=== PATIENT | male | born 1945 | race Caucasian/White ===

== ENCOUNTER 2019-07-27 12:56 | Observation (INO) | payer MEDICARE ==
--- NOTE | 2019-07-27 13:53 | ED ---
HPI Chest Pain - HPI Summary HPI Summary: The patient is a 74 y/o M presenting to [facility] with a chief complaint of sudden onset chest discomfort yesterday with intermittent episodes lasting into today. He reports that he has been exerting himself more lately as he has been exercising a lot. Yesterday, he experienced a twinge in his chest, which reminded him of when he had to have a cardiac stent placed secondary to ACS. He states his chest is currently diffusely sore with rating of 3/10 in severity. He denies any shortness of breath, cough, dizziness, diaphoresis, nausea, or abdominal pain. He took 2-3 ASA since last night to some relief. He did not take NTG although he has it at home. PMHx: HTN, acute coronary syndrome, angioplasty, cardiac stents. FHx: cardiac disease, HTN. Nonsmoker, occasional EtOH, no substance use. Medications reviewed. Allergies noted. - History of Current Complaint Chief Complaint: EDChestPainROMI Time Seen by Provider: 07/27/19 13:36 Hx Obtained From: Patient Onset/Duration: Started Hours Ago - yesterday, Still Present Timing: Intermittent, Lasting Minutes Initial Severity: Moderate Current Severity: Mild Pain Intensity: 3 Pain Scale Used: 0-10 Numeric Chest Pain Location: Diffuse Chest Pain Radiates: No Character: Other: - "twinge", soreness Aggravating Factor(s): Exertion Alleviating Factor(s): Rest Associated Signs and Symptoms: Negative: Dizziness, Shortness of Breath, Diaphoresis, Nausea, Cough, Abdominal Pain - Allergy/Home Medications Allergies/Adverse Reactions: Allergies Allergy/AdvReac Type Severity Reaction Status Date / Time No Known Allergies Allergy Verified 08/24/13 09:18 Home Medications: Home Medications Aspirin EC TAB* [Ecotrin EC Low Dose 81 MG*] 81 mg PO DAILY 07/27/19 [History Confirmed 07/27/19] Atorvastatin* [Lipitor 40 MG*] 40 mg PO QPM 07/27/19 [History Confirmed 07/27/19 ] Cholecalciferol (Vitamin D3) [Vitamin D3] 1,000 unit PO DAILY 07/27/19 [History Confirmed 07/27/19] LORazepam TAB(*) [Ativan 0.5 MG TAB (*)] 0.5 - 1.5 mg PO TID PRN 07/27/19 [ History Confirmed 07/27/19] Magnesium 50 mg PO DAILY 07/27/19 [History Confirmed 07/27/19] Metoprolol Succinate XL TAB* [Toprol XL TAB*] 25 mg PO DAILY 07/27/19 [History Confirmed 07/27/19] Multivitamins/Minerals TAB* [Theragran/minerals TAB*] 1 tab PO DAILY 07/27/19 [ History Confirmed 07/27/19] Nitroglycerin TAB 0.4 MG* 0.4 mg SL Q5M PRN 07/27/19 [History Confirmed 07/27/19 ] [place]-3 Fatty Acids (Nf) [Fish Oil (NF)] 2,000 mg PO DAILY 07/27/19 [History Confirmed 07/27/19] [place] Mushroom Extract 1 cap PO DAILY 07/27/19 [History Confirmed 07/27/19 ] amLODIPine TAB* [Norvasc 5 mg TAB*] 5 mg PO DAILY 07/27/19 [History Confirmed ] PMH/Surg Hx/FS Hx/Imm Hx Endocrine/Hematology History: Denies: Hx Anticoagulant Therapy, Hx Diabetes, Hx Thyroid Disease Cardiovascular History: Reports: Hx Hypertension Denies: Hx Hypercholesterolemia, Hx Peripheral Vascular Disease Respiratory History: Reports: Other Respiratory Problems/Disorders - PNEUMONIA X3 IN 5 MONTH PERIOD. Denies: Hx Asthma Musculoskeletal History: Denies: Hx Arthritis, Hx Rheumatoid Arthritis, Hx Osteoporosis Sensory History: Denies: Hx Cataracts, Hx Contacts or Glasses, Hx Glaucoma Opthamlomology History: Denies: Hx Cataracts, Hx Contacts or Glasses, Hx Glaucoma Neurological History: Denies: Hx Headaches, Hx Seizures, Hx Transient Ischemic Attacks (TIA) Psychiatric History: Reports: Hx Depression - prozac in past. no longer treating - Surgical History Surgical History: Yes Surgery Procedure, Year, and Place: tonsillectomy @1950, double hernia 1954 or 56, vasectomy 1989, angioplasty and stent, February 2013 Hx Anesthesia Reactions: No Infectious Disease History: No Infectious Disease History: Denies: Traveled Outside the [place] in Last 30 Days - Family History Known Family History: Positive: Cardiac Disease, Hypertension - Social History Alcohol Use: Occasionally Hx Substance Use: No Substance Use Type: Reports: None Hx Tobacco Use: No Smoking Status (MU): Never Smoked Tobacco Review of Systems Negative: Skin Diaphoresis Positive: Chest Pain - "twinge" Negative: Shortness Of Breath, Cough Negative: Abdominal Pain, Nausea Neurological: Other - Negative: dizziness All Other Systems Reviewed And Are Negative: Yes Physical Exam - Summary Physical Exam Summary: VITAL SIGNS: Reviewed. GENERAL: Patient is a well-developed and nourished male who is lying comfortable in the stretcher. Patient is not in any acute respiratory distress. HEAD AND FACE: No signs of trauma. No ecchymosis, hematomas or skull depressions. No sinus tenderness. EYES: PERRLA, EOMI x 2, No injected conjunctiva, no nystagmus. EARS: Hearing grossly intact. Ear canals and tympanic membranes are within normal limits. MOUTH: Oropharynx within normal limits. NECK: Supple, trachea is midline, no adenopathy, no JVD, no carotid bruit, no c- spine tenderness, neck with full ROM. CHEST: Symmetric, no tenderness at palpation. LUNGS: Clear to auscultation bilaterally. No wheezing or crackles. CVS: Regular rate and rhythm, S1 and S2 present, no murmurs or gallops appreciated. ABDOMEN: Soft, non-tender. No signs of distention. No rebound, no guarding, and no masses palpated. Bowel sounds are normal. EXTREMITIES: FROM in all major joints, no edema, no cyanosis or clubbing. NEURO: Alert and oriented x 3. No acute neurological deficits. Speech is normal and follows commands. SKIN: Dry and warm. Triage Information Reviewed: Yes Vital Signs On Initial Exam: Initial Vitals Temp Pulse Resp BP Pulse Ox 98.2 F 90 18 142/89 97 07/27/19 13:00 07/27/19 13:00 07/27/19 13:00 07/27/19 13:00 07/27/19 13:00 Vital Signs Reviewed: Yes Procedures - Sedation Patient Received Moderate/Deep Sedation with Procedure: No Diagnostics - Vital Signs Vital Signs Temp Pulse Resp BP Pulse Ox 07/27/19 13:40 97 07/27/19 13:00 98.2 F 90 18 142/89 97 - Laboratory Result Diagrams: 07/27/19 14:15 07/27/19 14:15 Lab Statement: Any lab studies that have been ordered have been reviewed, and results considered in the medical decision making process. - Radiology Chest X-Ray Radiology Interpretation Completed By: Radiologist Summary of Radiographic Findings: Impression: No active cardiopulmonary disease is noted. ED physician has reviewed this report. - EKG 1258 Cardiac Rate: NL - 89 bpm EKG Rhythm: Sinus Rhythm Summary of EKG Findings: EKG at 1258 reveals NSR at [address] depressions in I , II, and V3-V6. ED physician has reviewed and interpreted this EKG. Re-Evaluation - Re-Evaluation First Eval Re-Evaluation Time: 16:00 Change: Unchanged Comment: We discussed results and plan for admission. Chest Pain Course/Dx - Course Assessment/Plan: Patient is a 74 y/o M who has history of acute coronary syndome with cardiac stent placement with current symptoms of intermittent episodes of chest discomfort described as a "twinge" and soreness onset yesterday with mild relief to ASA. Denies any shortness of breath, cough, dizziness, diaphoresis, nausea, or abdominal pain. No NTG taken yet. Blood work without a significant abnormality except for INR of 1.18, sodium of 133, CPK of 297, troponin of 0.06, and BNP of 334. Urinalysis is negative for UTI. EKG shows ST depression in leads 1 and 2 and also lead V3-V6. The patient took aspirin at home. Patient was given nitroglycerin in the ED, and his symptoms have significantly improved. Because of his comorbidities, I discussed my findings and test results with Dr. Pride who accepted the patient for admission. The patient is hemodynamically stable alert and oriented 3. - Diagnoses Provider Diagnoses: Chest pain, Elevated troponin - Provider Notifications Discussed Care Of Patient With: Radha Pride - hospitalist Time Discussed With Above Provider: 15:50 Instructed by Provider To: Admit As Observation - I discussed the patients case with Dr. Pride, and she accepts the patient for admission. Discharge ED - Sign-Out/Discharge Documenting (check all that apply): Patient Departure - Patient accepted for admission by Dr. Pride. - Discharge Plan Condition: Stable Disposition: ADMITTED TO [facility] - Billing Disposition and Condition Condition: STABLE Disposition: Admitted to [facility] - Attestation Statements Document Initiated by Scribe: Yes Documenting Scribe: Daniela Navarro Provider For Whom Scribe is Documenting (Include Credential): Dr. Andrae Harvey MD Scribe Attestation: IDaniela, scribed for Dr. Andrae Harvey MD on 07/28/19 at 1847. Scribe Documentation Reviewed: Yes Provider Attestation: The documentation as recorded by the scribe, Daniela Navarro accurately reflects the service I personally performed and the decisions made by me, Dr. Andrae Harvey MD Status of Scribe Document: Viewed
[2019-07-27 13:59] LABS: Urine Appearance Clear; Urine Bacteria Absent (Absent); Urine Bilirubin Negative (Negative); Urine Blood 1+ (Negative); Urine Color Yellow; Urine Glucose Negative (Negative); Urine Ketones Negative (Negative); Urine Nitrite Negative (Negative); Urine Protein Negative (Negative); Urine Red Blood Cell 2+(6-10/hpf) (Absent); Urine Specific Gravity 1.009 (1.010-1.030); Urine Urobilinogen Negative (Negative); Urine White Blood Cell Absent (Absent)
[2019-07-27] MEDS ORDERED: Nitroglycerin TAB 0.4 MG* 0.4 MG TAB SL ONE (14:19)
[2019-07-27] MEDS ORDERED: Nitroglycerin TAB 0.4 MG* 0.4 MG TAB ONE (14:21)
[2019-07-27 14:26] LABS: ABS Basophils 0.1 10^3/ul (0-0.2); ABS Lymphocytes 1.1 10^3/ul (1.0-4.8); ABS Monocytes 0.5 10^3/ul (0-0.8); ABS Neutrophils 5.3 10^3/ul (1.5-7.7); Eosinophil % 0.6 %; Hematocrit 42 % (42-52); Hemoglobin 14.5 g/dL (14.0-18.0); Lymphocyte % 15.8 %; Mean Corpuscular HGB Conc 35 g/dL (31-36); Mean Corpuscular Hemoglobin 30 pg (27-31); Mean Corpuscular Volume 85 fL (80-94); Mean Platelet Volume 6.4 fL (7.4-10.4); Platelet Count 208 10^3/uL (150-450); Red Blood Count 4.87 10^6 /uL (4.18-5.48); Red Cell Distribution Width 14 % (10-15)
[2019-07-27 14:35] LABS: INR 1.18 (0.82-1.09)
[2019-07-27 14:49] LABS: ALT 24 U/L (7-52); AST 25 U/L (13-39); Albumin 4.1 g/dL (3.2-5.2); Albumin/Globulin Ratio 1.5 (1-3); Alkaline Phosphatase 61 U/L (34-104); Anion Gap 7 mmol/L (2-11); BUN/Creatinine Ratio 13.2 (8-20); Blood Urea Nitrogen 12 mg/dL (6-24); CO2 Carbon Dioxide 25 mmol/L (22-32); Calcium 8.9 mg/dL (8.6-10.3); Chloride 101 mmol/L (101-111); Creatine Kinase 297 U/L (10-223); EGFR African American 98.8 (>60); EGFR Non-African American 81.7 (>60); Globulin 2.8 g/dL (2-4); Glucose 99 mg/dL (70-100); Potassium 3.7 mmol/L (3.5-5.0); Sodium 133 mmol/L (135-145); Total Protein 6.9 g/dL (6.4-8.9)
[2019-07-27 14:54] LABS: CKMB ng/mL 3.9 ng/mL (0.6-6.3)
[2019-07-27 14:55] LABS: Troponin I 0.06 ng/mL (<0.04)
[2019-07-27 15:04] LABS: TSH (Thyroid Stimulating Horm) 1.25 mcIU/mL (0.34-5.60)
[2019-07-27 17:29] LABS: Troponin I 0.06 ng/mL (<0.04)
[2019-07-27] MEDS ORDERED: LORazepam TAB(*) 1 MG PO PRN (17:51)
[2019-07-27] MEDS ORDERED: Nitroglycerin TAB 0.4 MG* 0.4 MG TAB SL PRN (17:51)
[2019-07-27] MEDS ORDERED: Acetaminophen TAB* 325 MG PO PRN (17:59)
[2019-07-27] MEDS ORDERED: Atorvastatin* 40 MG TAB PO SCH (18:00)
[2019-07-27 20:27] LABS: Troponin I 0.05 ng/mL (<0.04)
[2019-07-27] MEDS: Heparin VIAL(*) 5000 UNITS/ML VIAL (FIVE THOUSAND) SUBCUT SCH (21:23)
--- NOTE | 2019-07-27 21:29 | HP ---
CC: Dr. Jefry Costello; Dr. Valencia * HISTORY AND PHYSICAL: DATE OF ADMISSION: 07/27/19 TIME OF EVALUATION: 5:45 p.m. PRIMARY CARE PROVIDER: Dr. Jefry Costello. GAMMA OPERATOR: Dr. Valencia. CHIEF COMPLAINT: Chest pain. HISTORY OF PRESENT ILLNESS: Mr. White is a 74-year-old male with a past medical history of hypertension, coronary artery disease, status post MA and stents x2 who presented to the emergency room with episodes of left-sided chest pain "twinges" after hiking during the weekend. The patient states that he was in his usual state of health, but this year has been very stressful for him. His was diagnosed with glioblastoma multiforme and went into hospice earlier this year and in November. He states that he stopped exercising. He could not be as careful with his diet and has been going through a lot of anxiety. He states that over the weekend, he went to hike and climbed a trail with his family. He states that the last mile was very taxing, but he was able to do it with mild dyspnea and no chest pain. He states that he returned home and he started to experience some episodes of left-sided chest "twinges" that he describes as mild chest pain. The episodes were not related to exertion, but as they persisted today, he decided to come to the emergency room for further evaluation. He states that this chest pain feels very different from what he experienced in 2012 when he had his MA. He denies nausea, vomiting, shortness of breath, diaphoresis, or urinary or bowel complaints. PAST MEDICAL HISTORY: 1. Hypertension. 2. Coronary artery disease. The patient presented with [id number] MA in February 2013. He was found to have an occluded circumflex, status post PCI and stent placement, and to have 80% stenosis of the distal LAD. Plan at that time was for medical management of his LAD. The patient states in 2014 he had another stent placed, and as per Dr. Valencia's note, he had a thrombus in the LAD and another stent was placed and the stent in the circumflex was normal. This was done at [facility] in [place]. MEDICATION LIST: 1. Amlodipine 5 mg p.o. daily. 2. Aspirin 81 mg p.o. daily. 3. Atorvastatin 40 mg p.o. at bedtime. 4. Cholecalciferol 1000 units p.o. daily. 5. Lorazepam 0.5 to 1.5 mg p.o. t.i.d. as needed for anxiety. The patient states he has been taking this medication daily at least 1 to 2 times a day. 6. Magnesium 50 mg p.o. daily. 7. Metoprolol succinate 25 mg p.o. daily. 8. Multivitamin 1 tablet p.o. daily. 9. Nitroglycerin 0.4 mg sublingual q.5 minutes p.r.n. for chest pain. 10. Fish oil 2000 mg p.o. daily. ALLERGIES: No known drug allergies. FAMILY HISTORY: Reviewed and noncontributory. SOCIAL HISTORY: There is no history of alcohol or drug use. The patient has a remote history of smoking for 10 years, but he quit in 1977. As described in the HPI, he underwent a very stressful situation this year with the passing of his . Surrogate decision maker is his daughter, Debbie White, phone number is [phone]. REVIEW OF SYSTEMS: A 14-point review of systems was performed, and all the pertinent negative and positive findings are in the HPI. PHYSICAL EXAMINATION GENERAL: The patient is a pleasant elderly gentleman, sitting up on the ED stretcher, in no acute distress. VITAL SIGNS: Temperature 98.2, heart rate is 71, respiratory rate is 14, oxygen saturation is 96% on room air, blood pressure is 145/85. CHEST: Breath sounds bilaterally with no added sounds. CVS: Normal S1, S2. Regular rate and rhythm. ABDOMEN: Soft, nontender, and nondistended. Bowel sounds are present. EXTREMITIES: No edema. No calf tenderness. NEURO: He is alert and oriented x3. Able to move all 4 extremities. LABORATORY AND IMAGING DATA: The patient had a CBC that showed WBC of 7, hemoglobin 14.5, hematocrit 42, platelets of 208 with 75% neutrophils. INR is 1.1. Chemistry showed a sodium of 133, potassium of 3.7, chloride of 101, bicarb of 25, BUN of 12, creatinine was 0.91, glucose of 99, calcium 8.9, magnesium is 2. LFTs are normal, CPK 297. CK-MB is 3.9, troponin is 0.06 x2, BNP 334. TSH is 1.25. Urinalysis showed 1+ blood and 2+ rbc's. EKG done on 08/06/19 at 12:58 p.m. shows sinus rhythm at 89 beats per minute with no acute ischemic changes. On his prior EKG in 2012, he had ST changes in aVL, III, and aVF. They are not present at this time. 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 ASSESSMENT AND PLAN: Mr. White is a 74-year-old male with a past medical history of hypertension, coronary artery disease; status post stents to the circumflex in 2012 and to the LAD in 2014 who presented to the emergency room with complaints of chest pain. 1. Chest pain. Rule out acute coronary syndrome. It is interesting that the patient did not have chest pain during the exertion of hiking, but developed chest pain later. His EKG does not show acute ischemic changes and he has only minimal troponin elevation of 0.06. At the time of the interview, the patient is chest pain free. He will be admitted to observation to the telemetry floor. We are going to check serial troponins, and if acute coronary syndrome is ruled out, he will undergo exercise stress test in the morning. We will continue his aspirin and atorvastatin, and we will hold his metoprolol in preparation for stress test in the morning. 2. Hypertension. It is controlled, though we will continue his amlodipine. 3. DVT prophylaxis. The patient has a score of 2 on the DVT Prophylaxis Assessment Guide and he will be started on subcutaneous heparin. 4. Code status is full. TIME SPENT: Approximately 50 minutes were spent with the patient interview, medical records review, physical examination to complete this admission. More than half of this time was spent [id number] with the patient and in coordination of care. [id number]/[facility] #: [id number] JELLY
[2019-07-28] MEDS: Heparin VIAL(*) 5000 UNITS/ML VIAL (FIVE THOUSAND) SUBCUT SCH (05:11)
--- NOTE | 2019-07-28 07:41 | PN ---
Subjective Date of Service: 07/28/19 Interval History: HD2 on 07/28 74 M PMH CAD s/p PCI in 2012,2014 c/b thrombus and repeat plasty in 2014, HTN, HLD, anxiety who presented with exertional chest pain after a hike Overnight no acute events, VSS, some anxiety, constant c/o 1/10 pain in L chest Labs: Trop trended down 0.05 yesterday afternoon This morning: Awaiting exercise stress test, discussed if normal may be able to be discharged, but if high risk to stay. He is pleasant and well, still some c/ o occasional L sided chest pain and some sensation of SOB when laying flat Objective Active Medications: Acetaminophen (Tylenol Tab*) 650 mg PO Q6H PRN PRN Reason: MILD PAIN or TEMP > 100.4 Last Admin: 07/27/19 21:43 Dose: 650 mg Amlodipine Besylate (Norvasc Tab*) 5 mg PO DAILY [facility] Aspirin (Aspirin Ec Tab*) 81 mg PO DAILY [facility] Atorvastatin Calcium (Lipitor*) 40 mg PO QPM [facility] Last Admin: 07/27/19 18:28 Dose: 40 mg Cholecalciferol (Vitamin D Tab*) 1,000 units PO DAILY [facility] Heparin Sodium (Porcine) (Heparin Vial(*)) 5,000 units SUBCUT Q8HR [facility] Last Admin: 07/28/19 05:11 Dose: 5,000 units Lorazepam (Ativan Tab(*)) 1 mg PO TID PRN PRN Reason: ANXIETY Multivitamins/Minerals (Theragran/Minerals Tab*) 1 tab PO DAILY [facility] Nitroglycerin (Nitroglycerin Tab 0.4 Mg*) 0.4 mg SL Q5M PRN PRN Reason: ANGINA Vital Signs - 8 hr 07/28/19 03:15 Temperature 98.2 F Pulse Rate 64 Respiratory 18 Rate Blood Pressure 131/74 (mmHg) O2 Sat by Pulse 97 Oximetry Oxygen Devices in Use Now: None Appearance: Pleasant man in NAD Eyes: No Scleral Icterus Ears/Nose/Mouth/Throat: NL Teeth, Lips, Gums Neck: NL Appearance and Movements; NL JVP, Trachea Midline Respiratory: Symmetrical Chest Expansion and Respiratory Effort, Clear to Auscultation Cardiovascular: NL Sounds; No Murmurs; No JVD, RRR Abdominal: NL Sounds; No Tenderness; No Distention, No Hepatosplenomegaly Lymphatic: No Cervical Adenopathy, No Axillary Adenopathy Extremities: No Edema Skin: No Rash or Ulcers Neurological: Alert and Oriented x 3 Result Diagrams: 07/27/19 14:15 07/27/19 14:15 Assess/Plan/Problems-Billing Assessment: 74 M PMH CAD s/p PCI in 2012,2014 c/b thrombus and repeat plasty in 2014, HTN, HLD, anxiety who presented with exertional chest pain after a hike with mild troponin elevatio, + high risk stress test. - Patient Problems (1) Chest pain Current Visit: Yes Status: Acute Code(s): R07.9 - CHEST PAIN, UNSPECIFIED SNOMED Code(s): 16601310 Comment: - Exertional chest pain w/ SOB and mild trop elevation with no acute EKG changes - DDx demand or Type 2, ACS, deconditioning or other non cardiac cause of CP - Able to complete exercise stress test which was noted as high risk but on discussion with Dr Bertrand unchanged from 2015 - Will consult to cardiology - Reduced EF on NM, will repeat echo (2) CAD (coronary artery disease) Current Visit: Yes Status: Acute Code(s): I25.10 - ATHSCL HEART DISEASE OF [place] CORONARY ARTERY W/O ANG PCTRS SNOMED Code(s): 63844782 Comment: - PCI in 2012, repeat in 2014 - 2/2 prevention asa, statin, currently not on BB (3) HTN (hypertension) Current Visit: Yes Status: Acute Code(s): I10 - ESSENTIAL (PRIMARY) HYPERTENSION SNOMED Code(s): 57192718 Comment: - Controlled on home amlodipine (4) HLD (hyperlipidemia) Current Visit: Yes Status: Acute Code(s): E78.5 - HYPERLIPIDEMIA, UNSPECIFIED SNOMED Code(s): 10413007 Comment: - Atorva 40 (5) Anxiety Current Visit: Yes Status: Acute Code(s): F41.9 - ANXIETY DISORDER, UNSPECIFIED SNOMED Code(s): 76637383 Comment: - Home lorazepam, appreciate difficult extenuating circumstances in patients life (recently lost his and also pet dog) (6) DVT prophylaxis Current Visit: Yes Status: Acute Code(s): Z29.9 - ENCOUNTER FOR PROPHYLACTIC MEASURES, UNSPECIFIED SNOMED Code(s): 910438804 Comment: - [facility] (7) Full code status Current Visit: Yes Status: Acute Code(s): Z78.9 - OTHER SPECIFIED HEALTH STATUS SNOMED Code(s): 183569090 Status and Disposition: Inpatient
[2019-07-28] MEDS ORDERED: Multivitamins/Minerals TAB PO SCH (09:00)
[2019-07-28] MEDS ORDERED: Cholecalciferol TAB* 1000 UNITS PO SCH (09:00)
[2019-07-28] MEDS ORDERED: amLODIPine TAB* 5 MG PO SCH (09:00)
[2019-07-28] MEDS ORDERED: Aspirin EC TAB* 81 MG TAB.EC PO SCH (09:00)
[2019-07-28 12:30] VITALS: BP 139/79
--- NOTE | 2019-07-28 19:50 | CONS ---
CARDIOLOGY CONSULTATION: DATE OF CONSULT: 07/28/19 INDICATION FOR CONSULTATION: Chest pain, history of coronary artery disease. HISTORY OF PRESENT ILLNESS: The patient is a 74-year-old gentleman with a history of coronary artery disease, history of stenting to his left circumflex artery in 2012, history of a known 80% stenosis to his LAD, under medical management. The patient came to the hospital because he was having twinges of chest pain. The patient states that recently he has been under a stress. His is diagnosed with brain tumor and is in hospice. The patient used to be exercising regularly, but stopped for care of his . He has been careful with his diet, but has had a lot of anxiety. The patient states that this past weekend he was going for a hike with his family to relieve some of the stress, he did claim to have some mild dyspnea, but no actual chest pain. When he got home, he started having twinges on the left side of his chest and decided to come to the emergency room. In the emergency room, his EKG showed no obvious ST -segment depressions or elevations. The patient's troponin was minimally elevated at 0.06 and remained flat for 3 doses. The patient underwent a chemical nuclear stress test, which I reviewed personally. He does have an area of infarct to his lateral wall. He does have a moderately reduced LV systolic function, ejection fraction of 30% to 35%. His stress test was exactly the same as the stress test back in 2016. PAST MEDICAL HISTORY: Significant for coronary artery disease, hypertension. OUTPATIENT MEDICATIONS: 1. Amlodipine 5 mg a day. 2. Aspirin 81 mg a day. 3. Atorvastatin 40 mg a day. 4. Calciferol 1000 units a day. 5. Lorazepam as needed. 6. Magnesium 50 mg a day. 7. Metoprolol succinate 25 mg a day. 8. Multivitamin a day. 9. Fish oil tablets. ALLERGIES: No known drug allergies. FAMILY HISTORY: Noncontributory. No evidence of early coronary artery disease or cardiac arrhythmias. SOCIAL HISTORY: He is retired. He is . He quit smoking in 1996. Rare alcohol intake. He was getting regular exercise until his took ill. REVIEW OF SYSTEMS: Negative for fevers and chills. Negative for changes in bowel or bladder habits. Negative for change in weight. Other 12-point review is unremarkable. PHYSICAL EXAM: Height is 5 feet 8 inches, weight is 175 pounds, temperature 97.6, heart rate is 72, blood pressure 139/79, respiratory rate is 16, oxygen saturation 98%. Sclerae anicteric. Oropharynx is pink without erythema. Carotids are 2+ without bruits. JVD is normal. Thyroid is normal. Cardiac Exam: S1, S2 without any murmurs, rubs, or gallops. Lungs are clear to auscultation. Extremities show no edema. He has 2+ pulses throughout. The patient is awake, alert, and oriented. He moves all 4 extremities equally. Abdomen is soft, nontender, nondistended with normoactive bowel sounds. DIAGNOSTIC STUDIES/LAB DATA: Chemistries are within normal limits. AST and ALT are normal. Troponins are as described above. TSH is normal. BNP is minimally elevated at 334. CBC within normal limits. INR is normal. IMPRESSION AND PLAN: This is a 74-year-old gentleman with a history of coronary artery disease. He was admitted to the hospital with atypical chest pain. The patient's troponin levels are minimally elevated, but stagnant. No evidence of increase and then decrease of his troponin levels. His EKG shows no ischemic EKG changes. His stress test shows a larger infarct to his lateral wall, which is consistent with his stress test in 2016 in my office. His ejection fraction of 34% and stable. At this point, I am not convinced the patient's chest pain is cardiac in origin. I do not think any other cardiac testing is necessary. I will see the patient in my office at the end of this week for regularly scheduled office visit. [id number]/[facility] #: [id number] JELLY
--- NOTE | 2019-07-28 21:49 | DS ---
CC: Dr. Marcelino Valencia; Dr. Jefry Costello * DISCHARGE SUMMARY: DATE OF ADMISSION: 07/27/19 DATE OF DISCHARGE: 07/28/19 SECURE SOFTWARE ASSESSOR: Dr. Marcelino Valencia. PRIMARY CARE PROVIDER: Dr. Jefry Costello. PRIMARY DIAGNOSIS: Atypical chest pain. SECONDARY DIAGNOSES: 1. Coronary artery disease, status post PCI in 2012 and 2014, complicated by thrombus and repeat plasty in 2015. 2. Hypertension. 3. Hyperlipidemia. 4. Anxiety. 5. 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 MEDICATIONS: At the time of discharge: 1. Magnesium 50 mg p.o. daily. 2. Metoprolol succinate 25 mg p.o. daily. 3. [place]-3 fatty acids 2000 mg p.o. daily. 4. Harmony tail mushroom extract 1 cap p.o. daily. 5. Amlodipine 5 mg p.o. daily. 6. Aspirin 81 mg p.o. daily. 7. Atorvastatin 40 mg p.o. q.p.m. 8. Vitamin D3 1000 units p.o. daily. 9. Lorazepam 0.5 to 1.5 mg p.o. t.i.d. p.r.n., unchanged from prior dosing. Medication changes on this hospitalization include none. DISPOSITION AT THE TIME OF DISCHARGE: Stable to home. HISTORY OF PRESENT ILLNESS AND HOSPITAL COURSE: A 74-year-old male with above past medical history who presented to the emergency room on 07/27/19 after he reported that he had gone hiking with his daughter the day prior. At the top of the hike, he had exertional shortness of breath and chest pain. When he returned home, he had twinges of left and right-sided chest pain that felt similar to his prior heart disease in 2014, thus he decided to present to the emergency room. In the emergency room, EKG had no signs of acute ischemic changes. Troponins were 0.06, downtrended to 0.05 four hours later. BNP was elevated at 334, mild. Otherwise, labs were largely unremarkable. He was admitted to the hospital for rule out acute coronary syndrome. His hospital course by problems is as follows: 1. Atypical chest pain. The patient had intermittent chest pain throughout his hospital stay, but no associated shortness of breath. He had nuclear stress test done on 07/28/19 which showed anterior wall fixed defect, ejection fraction of 31%. In consultation with Dr. Valencia, he felt that these images did not change significantly from 2015 in his known prior area of heart myocardium. This was shared with the patient and no need for further intervention, although the patient may have had chest pain from deconditioning in the setting of a difficult year. His and his dog and he essentially stopped exercising and stopped following a heart healthy diet. We discussed the need for lifestyle changes and he intends to follow up with Dr. Valencia and discuss returning to exercise in a safe manner. 2. Anxiety. Home medications given. 3. Hypertension. Home medications were given. 4. Hyperlipidemia. The patient is on statin. 5. Coronary artery disease with prior PCI. The patient is optimized and secondary prevention with aspirin, statin, beta-maida on board. 6. DVT prophylaxis. The patient is on Lovenox. On day of discharge, the patient is tolerating diet, ambulating and actually reports no chest pain on exertion, mild twinges just while sitting which are attributed to musculoskeletal in nature, possibly anxiety related. LABS AND STUDIES DONE DURING THIS HOSPITALIZATION: Labs on 07/27/19, normal CBC , wholly unremarkable BMP. Troponin of 0.06 on 07/27/19 and 4 hours later 0.05. BNP of 334 and normal UA and normal chest x-ray. An EKG showing sinus tachycardia, but no acute ischemia. Nuclear medicine scan done on 07/28/19 which showed decreased ejection fraction of 31% and moderate sized anterior wall extending to the lateral wall which is unchanged from prior images in 2015. CONSULTANTS DURING THIS HOSPITALIZATION: Cardiology. ITEMS TO FOLLOW UP ON STATUS POST DISCHARGE: Atypical chest pain and some evidence of deconditioning in the setting of several months of stopping exercise and stopped following a heart healthy diet. 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 Consider restarting gentle exercise program, which the patient is motivated to do so. This discussion was had with the patient and his daughter and his son who agree to help patient complete his lifestyle goals. TIME SPENT: Thirty five minutes was spent on the planning of this discharge with over half of that spent directly at the bedside of the patient, providing direct patient care. If there are any questions about the care of this patient during this hospitalization, please do not hesitate to reach out and contact us directly. [id number]/[facility] #: [id number] JELLY
== END 2019-07-28 15:00 | disposition home or self-care (01) ==
LOC: ED 12:56 → MEDTELE 17:46
PROVIDERS: ADMIT Internal Medicine; ATTEND Internal Medicine
DX: R07.89 Other chest pain (principal); I25.10 Atherosclerotic heart disease of native coronary artery without angina pectoris; Z95.5 Presence of coronary angioplasty implant and graft; I10 Essential (primary) hypertension; E78.5 Hyperlipidemia, unspecified; F41.9 Anxiety disorder, unspecified; Z79.82 Long term (current) use of aspirin; Z79.899 Other long term (current) drug therapy; I25.2 Old myocardial infarction; Z87.891 Personal history of nicotine dependence; R53.83 Other fatigue
CPT/HCPCS: 36415; 71045; 78452; 80053; 81003; 81015; 82550; 82553; 83735; 83880; 84443; 84484; 85025; 85610; 93005; 93017; 96372; 99284; A9270-GY; A9502; G0378; J1644

== ENCOUNTER 2022-03-10 11:34 | Inpatient (IN) ==
[2022-03-10 12:15] LABS: ABS Lymphocytes 0.9 10^3/ul (1.0-4.8); ABS Monocytes 0.6 10^3/ul (0-0.8); ABS Neutrophils 4.9 10^3/ul (1.5-7.7); Eosinophil % 0.6 %; Hematocrit 40 % (42-52); Hemoglobin 13.5 g/dL (14.0-18.0); Lymphocyte % 13.5 %; Mean Corpuscular HGB Conc 34 g/dL (31-36); Mean Corpuscular Hemoglobin 30 pg (27-31); Mean Corpuscular Volume 88 fL (80-94); Mean Platelet Volume 7.3 fL (7.4-10.4); Platelet Count 245 10^3/uL (150-450); Red Blood Count 4.51 10^6 /uL (4.18-5.48); Red Cell Distribution Width 14 % (10-15); White Blood Count 6.5 10^3/uL (3.5-10.8)
[2022-03-10 12:41] LABS: INR 1.35 (0.86-1.15)
[2022-03-10 13:03] LABS: Albumin 4.2 g/dL (3.2-5.2); Albumin/Globulin Ratio 1.5 (1-3); Calcium 9.5 mg/dL (8.6-10.3); Globulin 2.8 g/dL (2-4); Potassium 3.6 mmol/L (3.5-5.0); Total Bilirubin 1.1 mg/dL (0.2-1.0); eGFR CKD-EPI 68.1 (>60)
[2022-03-10 13:34] LABS: High Sensitivity Troponin 1 Hr 22 pg/mL (<20)
[2022-03-10 18:12] LABS: High Sensitivity Troponin 3 Hr 22 pg/mL (<20)
[2022-03-10] MEDS ORDERED: Furosemide 40 mg/4 ml IV VIAL IV SLOW PU ONE (20:47)
[2022-03-10] MEDS ORDERED: Potassium Chlor 20 meq TAB.ER PO ONE (20:48)
[2022-03-10] MEDS ORDERED: Magnesium Sulfate 2 gm BAG 2 GM/50 ML BAG IVPB ONE (20:48)
[2022-03-11 09:52] LABS: ABS Eosinophils 0.1 10^3/ul (0-0.6); ABS Lymphocytes 1.3 10^3/ul (1.0-4.8); ABS Monocytes 0.7 10^3/ul (0-0.8); ABS Neutrophils 5.6 10^3/ul (1.5-7.7); Eosinophil % 1.1 %; Hematocrit 40 % (42-52); Hemoglobin 13.7 g/dL (14.0-18.0); Lymphocyte % 16.8 %; Mean Corpuscular HGB Conc 34 g/dL (31-36); Mean Corpuscular Hemoglobin 30 pg (27-31); Mean Corpuscular Volume 89 fL (80-94); Mean Platelet Volume 7.2 fL (7.4-10.4); Platelet Count 248 10^3/uL (150-450); Red Blood Count 4.56 10^6 /uL (4.18-5.48); Red Cell Distribution Width 14 % (10-15); White Blood Count 7.7 10^3/uL (3.5-10.8)
[2022-03-11] MEDS: Aspirin EC 81 mg TAB.EC (enteric coated) PO SCH (09:57)
[2022-03-11] MEDS: Enoxaparin 40 MG/0.4 ML SYR SUBCUT SCH (09:57)
[2022-03-11 10:33] LABS: Calcium 9.1 mg/dL (8.6-10.3); Magnesium 2.4 mg/dL (1.9-2.7); Potassium 4.2 mmol/L (3.5-5.0); eGFR CKD-EPI 70.3 (>60)
[2022-03-11] MEDS ORDERED: Furosemide 20 mg/2 ml IV VIAL IV ONE (15:58)
[2022-03-12 06:19] LABS: ABS Basophils 0.1 10^3/ul (0-0.2); ABS Eosinophils 0.2 10^3/ul (0-0.6); ABS Lymphocytes 1.7 10^3/ul (1.0-4.8); ABS Monocytes 0.7 10^3/ul (0-0.8); ABS Neutrophils 5.1 10^3/ul (1.5-7.7); Eosinophil % 2.3 %; Hematocrit 40 % (42-52); Hemoglobin 13.5 g/dL (14.0-18.0); Lymphocyte % 22.5 %; Mean Corpuscular HGB Conc 34 g/dL (31-36); Mean Corpuscular Hemoglobin 30 pg (27-31); Mean Corpuscular Volume 89 fL (80-94); Mean Platelet Volume 7.6 fL (7.4-10.4); Nucleated Red Blood Cells % 0.1; Platelet Count 226 10^3/uL (150-450); Red Blood Count 4.51 10^6 /uL (4.18-5.48); Red Cell Distribution Width 14 % (10-15); White Blood Count 7.8 10^3/uL (3.5-10.8)
[2022-03-12 06:46] LABS: Calcium 8.8 mg/dL (8.6-10.3); Magnesium 2.3 mg/dL (1.9-2.7); Phosphorus 3.7 mg/dL (2.5-5.0); Potassium 4.1 mmol/L (3.5-5.0); eGFR CKD-EPI 68.1 (>60)
[2022-03-12] MEDS: Enoxaparin 40 MG/0.4 ML SYR SUBCUT SCH (08:45)
[2022-03-12] MEDS: Aspirin EC 81 mg TAB.EC (enteric coated) PO SCH (08:45)
[2022-03-13 06:44] LABS: ABS Basophils 0.1 10^3/ul (0-0.2); ABS Eosinophils 0.2 10^3/ul (0-0.6); ABS Lymphocytes 1.5 10^3/ul (1.0-4.8); ABS Monocytes 0.6 10^3/ul (0-0.8); Eosinophil % 2.1 %; Hematocrit 40 % (42-52); Hemoglobin 13.6 g/dL (14.0-18.0); Lymphocyte % 20.3 %; Mean Corpuscular HGB Conc 34 g/dL (31-36); Mean Corpuscular Hemoglobin 30 pg (27-31); Mean Corpuscular Volume 89 fL (80-94); Mean Platelet Volume 7.4 fL (7.4-10.4); Platelet Count 229 10^3/uL (150-450); Red Cell Distribution Width 14 % (10-15); White Blood Count 7.4 10^3/uL (3.5-10.8)
[2022-03-13 07:08] LABS: Potassium 4.3 mmol/L (3.5-5.0); eGFR CKD-EPI 74.4 (>60)
[2022-03-13] MEDS: Enoxaparin 40 MG/0.4 ML SYR SUBCUT SCH (08:51)
[2022-03-13] MEDS: Aspirin EC 81 mg TAB.EC (enteric coated) PO SCH (08:51)
[2022-03-13] MEDS ORDERED: Regadenoson 0.4 MG/5 ML SYRINGE ONE (10:06)
[2022-03-13] MEDS ORDERED: NS 0.9% 1000 ml BAG 1,000 ML IV SCH (23:55)
[2022-03-14 05:47] LABS: PCO2 Arterial 31 mmHg (35-45); PO2 Arterial 99 mmHg (80-100)
[2022-03-14 07:12] LABS: ABS Eosinophils 0.1 10^3/ul (0-0.6); ABS Lymphocytes 1.2 10^3/ul (1.0-4.8); ABS Monocytes 0.6 10^3/ul (0-0.8); ABS Neutrophils 6.3 10^3/ul (1.5-7.7); Eosinophil % 0.9 %; Hematocrit 40 % (42-52); Hemoglobin 13.3 g/dL (14.0-18.0); Lymphocyte % 14.4 %; Mean Corpuscular HGB Conc 34 g/dL (31-36); Mean Corpuscular Hemoglobin 30 pg (27-31); Mean Corpuscular Volume 89 fL (80-94); Mean Platelet Volume 7.4 fL (7.4-10.4); Platelet Count 224 10^3/uL (150-450); Red Blood Count 4.43 10^6 /uL (4.18-5.48); Red Cell Distribution Width 14 % (10-15); White Blood Count 8.2 10^3/uL (3.5-10.8)
[2022-03-14 07:42] LABS: Calcium 8.8 mg/dL (8.6-10.3); Potassium 4.2 mmol/L (3.5-5.0); eGFR CKD-EPI 76.2 (>60)
[2022-03-14] MEDS: Aspirin EC 81 mg TAB.EC (enteric coated) PO SCH (08:05)
[2022-03-14] MEDS: Enoxaparin 40 MG/0.4 ML SYR SUBCUT SCH (08:17)
[2022-03-14] MEDS ORDERED: VERAPAMIL 2.5 MG/ML 2 ML VIAL ** 5 mg/2 ml ONE (09:50)
[2022-03-14] MEDS ORDERED: nitroGLYCERIN DRIP 25,000 MCG/250 ML BTL ONE (09:50)
[2022-03-14] MEDS ORDERED: Heparin 1,000 UNIT/ML 10 ml (10,000 UNITS) CATHLAB/DIALYSIS ONE (09:50)
[2022-03-14] MEDS ORDERED: Lidocaine 1% MPF 5 ML VIAL ONE ×2 (09:51→10:55)
[2022-03-14] MEDS ORDERED: Heparin 2 UNITS/ML 1000 mls 0 ML IV ONE (09:51)
[2022-03-14] MEDS ORDERED: fentaNYL 100 mcg/2 ml 50 MCG/ML VIAL ONE (09:52)
[2022-03-14] MEDS ORDERED: Midazolam 5 mg/5 ml VIAL 1 mg/ml 5 ml VIAL (5 mg) ONE (09:52)
[2022-03-14] MEDS ORDERED: Iohexol 350 (CONTRAST) 50 ML SDV IV ONE ×2 (09:52→09:53)
[2022-03-14] MEDS ORDERED: Heparin 2 UNITS/ML 1000 mls 1,000 ML IV ONE (09:56)
[2022-03-14] MEDS ORDERED: Iohexol 350 (CONTRAST) 200 ML MDV IV ONE (10:34)
[2022-03-14] MEDS ORDERED: Furosemide 20 mg/2 ml IV VIAL IV ONE (16:03)
[2022-03-15] MEDS: Enoxaparin 40 MG/0.4 ML SYR SUBCUT SCH (10:42)
[2022-03-15] MEDS: Aspirin EC 81 mg TAB.EC (enteric coated) PO SCH (10:42)
[2022-03-15 14:12] VITALS: BP 96/53
== END 2022-03-15 15:45 | disposition home or self-care (01) | DRG 286 ==
LOC: ED 11:34 → EDHOLD 19:48 → SUATTDRO 19:48 → MEDTELE 22:08
PROVIDERS: ADMIT Internal Medicine; ATTEND Internal Medicine